=== PATIENT | female | born 1985 | race Caucasian/White ===

== ENCOUNTER 2019-08-25 10:26 | Day surgery (SDC) | payer BC ==
[2019-08-25] MEDS ORDERED: Iopamidol 200-M 10 ML vial ITHECAL ONE (10:47)
[2019-08-25] MEDS ORDERED: Lidocaine 2% 5 ML SDV INJECT ONE (10:47)
[2019-08-25] MEDS ORDERED: Betamethasone Acetate/Betamethasone Sod Phosphate 30 MG/5 ML MDV EPIDUR ONE (10:47)
[2019-08-25] MEDS ORDERED: Ropivacaine 0.5% 5 MG/ML 30 ML SDV INJECT ONE (10:47)
--- NOTE | 2019-08-25 22:14 | OR ---
SURGEON: Karen North D.O. DATE OF PROCEDURE: 08/25/2019 PRIMARY SURGEON: Karen North D.O. TYRE FINISHER AND EXAMINER: OR staff present: 1. Letty Trujillo RN. 2. Brii Medina RN. 3. Charline Fregoso RT. WOUND CLASS: I. PREOPERATIVE DIAGNOSES: 1. Lumbar degenerative disk disease. 2. Lumbar spondylosis. 3. Lumbar L5-S1 radiculopathy. POSTOPERATIVE DIAGNOSES: 1. Lumbar degenerative disk disease. 2. Lumbar spondylosis. 3. Lumbar L5-S1 radiculopathy. PROCEDURE PERFORMED: 1. Right transforaminal epidural steroid injection at S1. 2. Fluoroscopic guidance for needle placement. 3. Local with oral Valium for sedation. SCREENING QUESTIONS: The patient answered "no" to all of the following questions: 1. Are you allergic to iodine, Betadine or latex? 2. Do you have a bleeding disorder? 3. Do you have any joint replacements, heart valve replacements, or a pacemaker? 4. Are you allergic to anti-inflammatories or blood thinners? 5. Do you have any current local or systemic infections? MEDICAL NECESSITY: This is a patient with a history of chronic low back pain and lower extremity radicular pain in the above dermatomal pattern that comes in for the above diagnostic and therapeutic procedure. Pertinent positives and negatives for this suspected disease process along with the diagnostic findings and testing are in the patient's history and physical exam. The most salient feature includes radicular pain in the above dermatomal pattern. The patient had failed attempts at conservative therapy including physical therapy, nonsteroidal anti- inflammatory drugs, and other medications. No contraindications to perform this procedure including medical, no bleeding disorders or infections, no psychological, no antisocial personality disorder or active addiction disorder. There are no work-related issues, and, in general, the patient does not have any history of multiple prior interventions, surgeries or nerve blocks which have failed to return the patient to function. The patient's other symptoms to be treated include numbness, paresthesia, dysesthesia or hypoesthesia referred into the left lower extremity or any weakness in the involved myotome. This procedure is being performed in accordance with national guidelines as written by the [employer] (DANIELLE). DESCRIPTION OF PROCEDURE: The patient had the procedure thoroughly explained including risks, benefits and alternatives. Consent was signed in my clinic indicating understanding and willingness to proceed. The patient presented to [facility] [place] where the patient was escorted to the dressing room to disrobe and change into a hospital gown. Preoperative vital signs were taken and stable. The patient reported that Valium was taken prior to the procedure. The patient was brought to the procedure room and placed in the prone position on the table. A pillow was placed under the abdomen in order to flatten the lumbar lordosis. The back was prepped with ChloraPrep and sterilely draped. All personnel in the operating room were dressed in appropriate attire including surgical scrubs, head and shoe covers. This was to ensure sterility while in the treatment room. During the time fluoroscopy was in use, all personnel in the operating room wore lead lea with thyroid collars. Sterile technique was used during the procedure. The fluoroscope was placed for the S1 transforaminal epidural steroid injection. There was no sign of infection at the skin site for needle insertion. The skin was anesthetized with 2% lidocaine with a 27 gauge 1-1/2 inch needle. Then a 22 gauge 3-1/2 inch spinal needle, advanced to the S1. Under direct fluoroscopic guidance needle position was verified in three views; AP, oblique and lateral, with 0.2 cubic centimeters increments of Isovue-200 dye. No intravascular flow pattern was observed under live fluoroscopy. Then 12 milligrams of Celestone was slowly injected after negative aspiration of heme, cerebrospinal fluid and no paresthesias were noted. The needle was cleared prior to removal from the skin. No adverse reactions were noted. The patient was brought to the recovery room awake and in good condition by my staff. The patient was monitored and discharge instructions were given after a brief stay in the recovery area. Both oral and written discharge and follow up instructions were given. The patient will follow up in the clinic in 3-4 weeks post procedure to evaluate the efficacy. The patient verbalized understanding including understanding of those signs and symptoms that would require emergency care and knows how to contact the office if there are any problems or questions in the meantime. PREOPERATIVE PAIN: 3 to 7 out of 10. POSTOPERATIVE PAIN: /. FOLLOWUP: In the Pain Clinic in 3 weeks. HOGTRACIEHR / DENISEL /[id number]
== END 2019-08-25 13:30 | disposition home or self-care (01) ==
LOC: MW.SDS 10:26
PROVIDERS: ATTEND Anesthesiology
DX: G89.4 Chronic pain syndrome (principal); M51.17 Intervertebral disc disorders with radiculopathy, lumbosacral region; M47.27 Other spondylosis with radiculopathy, lumbosacral region; M51.16 Intervertebral disc disorders with radiculopathy, lumbar region; M79.18 Myalgia, other site
CPT/HCPCS: 64483; 81025; J0702

== ENCOUNTER 2020-04-17 16:27 | Emergency (ER) | payer BC ==
[2020-04-17] MEDS ORDERED: Tetracaine HCl/PF 0.5% 4 ML Bottle ONE (16:39)
[2020-04-17] MEDS ORDERED: Tetracaine HCl/PF 0.5% 4 ML Bottle EYEBOTH ONE (16:51)
[2020-04-17] MEDS ORDERED: Ibuprofen 800 MG Tab PO ONE (16:51)
[2020-04-17] MEDS ORDERED: Erythromycin Base 0.5% Ophth Oint 1 GM Tube EYERT ONE (16:54)
[2020-04-17] MEDS ORDERED: Acetaminophen/oxyCODONE 325-5 MG Tab PO ONE (17:10)
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
[2020-04-17] MEDS ORDERED: Acetaminophen/oxyCODONE 325-5 MG Tab ONE (17:11)
[2020-04-17] MEDS ORDERED: Atropine 1% Ophth Soln 5 ML BOTTLE EYERT STA (17:40)
[2020-04-17] MEDS ORDERED: Morphine 4 MG/ML Syringe IVPUSH ONE (19:00)
[2020-04-17] MEDS ORDERED: Ondansetron 4 MG/2 ML SDV IVPUSH ONE (19:01)
== END 2020-04-17 20:00 | disposition home or self-care (01) ==
LOC: MW.ED 16:27
DX: T26.11XA Burn of cornea and conjunctival sac, right eye, initial encounter (principal); T26.12XA Burn of cornea and conjunctival sac, left eye, initial encounter; T20.16XA Burn of first degree of forehead and cheek, initial encounter; Z88.1 Allergy status to other antibiotic agents; Z79.899 Other long term (current) drug therapy; X10.0XXA Contact with hot drinks, initial encounter
CPT/HCPCS: 96374; 96375; 99283; A9270; J2270; J2405

== ENCOUNTER 2020-05-10 11:23 | Day surgery (SDC) | payer BC ==
[2020-05-10] MEDS ORDERED: Lidocaine 2% 5 ML SDV INJECT ONE (13:30)
[2020-05-10] MEDS ORDERED: Ropivacaine 0.5% 5 MG/ML 30 ML SDV INJECT ONE (13:30)
[2020-05-10] MEDS ORDERED: Iopamidol 200-M 10 ML vial ITHECAL ONE (13:30)
[2020-05-10] MEDS ORDERED: Betamethasone Acetate/Betamethasone Sod Phosphate 30 MG/5 ML MDV EPIDUR ONE (13:30)
--- NOTE | 2020-05-11 17:36 | OR ---
SURGEON: Karen North D.O. DATE OF PROCEDURE: 05/10/2020 PRIMARY SURGEON: Karen North DO ASSISTANTS: OR staff present: 1. Letty Turjillo RN. 2. Ricarda Portillo RN. 3. Letty Titus, RT. PREOPERATIVE DIAGNOSES: 1. L5-S1 degenerative disk disease. 2. L5-S1 radiculopathy. 3. Chronic low back pain. 4. Lumbar spondylosis. 5. Lumbar scoliosis. POSTOPERATIVE DIAGNOSES: 1. L5-S1 degenerative disk disease. 2. L5-S1 radiculopathy. 3. Chronic low back pain. 4. Lumbar spondylosis. 5. Lumbar scoliosis. PROCEDURES PERFORMED: 1. Caudal epidural steroid injection. 2. Fluoroscopic guidance for needle placement. 3. Local with oral Valium for sedation. SCREENING QUESTIONS: The patient answered "no" to all of the following questions: 1. Are you allergic to latex? 2. Do you have a bleeding disorder? 3. Do you have any current local or systemic infections? 4. Are you taking any anti-inflammatories or blood thinners? 5. Do you have any joint replacements, heart valve replacements, or a pacemaker? DESCRIPTION OF PROCEDURE: The patient had the procedure thoroughly explained including all possible risks, benefits and alternatives. Consent was signed in my clinic indicating understanding and willingness to proceed. The patient presented to [facility] [place] and was escorted to the dressing room to disrobe and change into a hospital gown. Preoperative vital signs were taken and stable. The patient reported that Valium was taken prior to the procedure. The patient was brought back to the procedure room and placed in the prone position on the procedure room table. A pillow was placed under the hips in order to flatten the lumbar lordosis. The back was prepped with ChloraPrep and sterilely draped. All personnel in the operating room were dressed in appropriate attire including surgical scrubs, head and shoe covers. This was to ensure sterility while in the treatment room. During the time fluoroscopy was in use, all personnel in the operating room wore lead lea with thyroid collars. Sterile technique was used throughout the procedure. The patient was awake and conversant throughout the procedure. There was no evidence of infection at the site of needle insertion. Skeletal landmarks were identified under fluoroscopy for the lumbar epidural. Skin was anesthetized with 2% lidocaine with a sterile 27-gauge 1.5 inch needle. Then a 20-gauge Tuohy epidural needle was placed in the epidural space with loss of resistance technique under fluoroscopic guidance. No heme, cerebrospinal fluid, or paresthesias were noted. Isovue-200 contrast dye was injected in 0.2 cubic centimeter increments and seen to outline the epidural space in both AP and lateral views. There was no intravascular flow pattern observed under live fluoroscopy. Then 12 milligrams of Celestone was slowly injected after negative aspiration. The patient tolerated the procedure well. Vital signs were stable during and after the procedure. The staff escorted the patient to the recovery area and the patient was released in stable condition after a brief stay in the recovery room monitored by the nurse. The patient was given both oral and written discharge and follow up instructions with recommendation to follow up given for 2-3 weeks. The patient voiced understanding including understanding of those signs and symptoms that would require emergency care. The patient knows how to contact the office if there are any additional problems or questions in the meantime. PREOPERATIVE PAIN: 6+/10. POSTOPERATIVE PAIN: 3/10. FOLLOWUP: In the Pain Clinic in 3 weeks. SARA / SILVERIO /[id number]
== END 2020-05-10 13:39 ==
LOC: MW.SDS 11:23
PROVIDERS: ATTEND Anesthesiology
DX: G89.4 Chronic pain syndrome (principal); M51.17 Intervertebral disc disorders with radiculopathy, lumbosacral region; M47.26 Other spondylosis with radiculopathy, lumbar region; M41.9 Scoliosis, unspecified; M51.16 Intervertebral disc disorders with radiculopathy, lumbar region; M79.18 Myalgia, other site; G57.01 Lesion of sciatic nerve, right lower limb; M06.9 Rheumatoid arthritis, unspecified; Z88.8 Allergy status to other drugs, medicaments and biological substances; Z79.899 Other long term (current) drug therapy
CPT/HCPCS: 62323; J0702; J2001; J2795; Q9966

== ENCOUNTER 2020-06-23 17:57 | Emergency (ER) | payer BC ==
[2020-06-23] MEDS ORDERED: Sodium Chloride 0.9% 10 ML Syringe FLUSH PRN (18:19)
[2020-06-23] MEDS ORDERED: Sodium Chloride 0.9% 2.5 ML Syringe FLUSH PRN (18:19)
[2020-06-23] MEDS ORDERED: Morphine 4 MG/ML Syringe IVPUSH ONE (18:19)
[2020-06-23] MEDS ORDERED: Lactated Ringers 1,000 ML IV ONE (18:19)
[2020-06-23 18:46] LABS: POTASSIUM,K 3.9 mmol/L (3.5-5.1)
--- NOTE | 2020-06-23 19:00 | CT ---
INDICATION: Right flank and right lower quadrant pain for 8 history of kidney stones. TECHNIQUE: Volumetric helical scanning of the abdomen and pelvis was performed without contrast material. Coronal and sagittal reconstructions were obtained. COMPARISON: None. FINDINGS: No ureteral stone or obstruction is evident. Stones in the right renal collecting system measuring up to 8 mm, 7 mm, 5 mm, 5 mm and 2 mm are noted as well the 7 mm stone in the left renal collecting system. The renal parenchyma is unremarkable. The bladder is grossly negative. The uterus and ovaries are grossly negative. No free fluid is evident. There appears to be mild fatty change in the liver. The liver is otherwise unremarkable. No bile duct dilation is evident. The spleen is within normal limits. The adrenal glands are unremarkable. The pancreas is within normal limits. No lymphadenopathy is evident. There is considerable stool in the colon. A few colonic diverticula are noted. The stomach is distended with food. Images of the lung bases demonstrate with scattered small ground-glass infiltrates. The heart is normal in size. IMPRESSION: 1. Negative for ureteral stone and obstruction. Renal collecting system stones bilaterally, as above. 2. Scattered small nonspecific ground-glass infiltrates in both lung bases. 3. Constipation and a few colonic diverticula but no evidence of diverticulitis. 4. Stomach distended with food. 5. Mild fatty change in the liver. Please note that all CT scans at this facility use dose modulation, iterative reconstruction, and/or weight-based dosing when appropriate to reduce radiation dose to as low as reasonably achievable. Dictated by Sterling Kim MD @ Jun 23 2020 6:50PM Signed by Dr. Sterling Kim @ Jun 23 2020 6:59PM
[2020-06-23] MEDS ORDERED: HYDROmorphone 2 MG/ML Syringe IVPUSH ONE (19:07)
--- NOTE | 2020-06-23 19:17 | EDM.PDOC ---
<Craig Linares - Last Filed: 06/23/20 19:14> ED HPI GENERAL MEDICAL PROBLEM - General Chief Complaint: Abdominal Pain Stated Complaint: ABDOMINAL PAIN Time Seen by Provider: 06/23/20 18:00 - History of Present Illness INITIAL COMMENTS - FREE TEXT/NARRATIVE: CHIEF COMPLAINT(S): Abdominal pain HISTORY OF PRESENT ILLNESS: This is a 35-year-old woman with a past medical history of fibromyalgia and lupus with recent diagnosis of coronavirus on May 30, 2020 who comes to the emergency department with a chief complaint of abdominal pain. The patient states that she is having off-and-on abdominal pain for 1 year however it is worsened over the last month since she has had Covid. She states that she can tell with muscle pain from lying down so much given the Covid. She states that she started to experience right back pain radiating to her groin and the only relief at that time was hot compresses and baths. She states that she tried that again today and it did not help. She states that the pain is sharp and rated 10 out of 10 at its worst. She states that movement worsens this. She denies any dysuria, hematuria, vaginal bleeding or vaginal discharge. She states that she has some chills but denies any fevers. She denies any cough, shortness of breath but states that she is part of a study and is still shedding the virus. She denies any other symptoms. REVIEW OF SYSTEMS: Constitutional: Denies fever, chills. Eyes: Denies eye pain Ears, Nose, Mouth, & Throat: Denies earache Cardiovascular: Denies chest pain Respiratory: Denies shortness of breath Gastrointestinal: Positive for right sided abdominal pain. Denies nausea, vomiting, diarrhea, melena, hematochezia, hematemesis Genitourinary: Denies hematuria dysuria, vaginal bleeding, vaginal discharge Skin:Denies a rash Neurological: Denies blurred vision Psychiatric: Denies depression PAST MEDICAL HISTORY: As per history of present illness and as reviewed below otherwise noncontributory. SURGICAL HISTORY: As per history of present illness and as reviewed below otherwise noncontributory. LMP: June 03, 2020 SOCIAL HISTORY: As per history of present illness and as reviewed below otherwise noncontributory. FAMILY HISTORY: As per history of present illness and as reviewed below otherwise noncontributory. EXAMINATION OF ORGAN SYSTEMS/BODY AREAS: Constitutional: Blood pressure is 112/72, heart rate 131, respiratory rate 18 with an oxygen saturation 98% on room air. Temperature 36.2 General: 35-year-old woman who does not appear to be in any acute distress Psychiatric: Appropriate mood and affect. Eyes: No scleral icterus or conjunctival erythema ENMT: Moist mucous membranes. No pharyngeal erythema Cardiovascular: Tachycardic but regular no gallops, murmurs, or rubs. Bilateral upper extremity pulses symmetric and intact. No peripheral edema. No JVD. Respiratory: Lungs clear to auscultation bilaterally. No wheezes, rales, or rhonchi. Gastrointestinal: Soft, nondistended, tenderness to palpation in the right pelvic/right lower quadrant area without any rebound or guarding. Normoactive bowel sounds Genitourinary: No suprapubic tenderness mild right CVA tenderness Musculoskeletal: Normal range of motion. Skin: No lesions or abrasions. Neurological: Alert, GCS 15 MEDICAL DECISION MAKING AND COURSE IN THE ED WITH INTERPRETATION/REVIEW OF DIAGNOSTIC STUDIES: This is a 35-year-old woman with a past medical history of nephrolithiasis, lupus, fibromyalgia and recent diagnosis of Covid who comes to the emergency department with right flank pain with radiation to her groin who is tachycardic. At this time I am concerned about the hospital and nephrolithiasis given her history of nephrolithiasis. Will obtain CBC, CMP, urinalysis, hCG. We will provide the patient with 1 L of lactated Ringer's bolus. We will provide the patient with 4 mg of IV morphine. Will obtain a CT abdomen pelvis with IV contrast and reevaluate. Laboratory: CBC reveals a leukocytosis of 19.79 with neutrophilic predominance. CMP reveals a mild elevation in her BUN at 22 and a creatinine of 1.11 otherwise unremarkable. hCG is negative Urinalysis was a clean catch and was negative for leukocyte esterase, negative for nitrites, and positive for blood. Interpretation: Hematuria The radiological images were viewed by myself along with reading the report from the radiologist. CT abdomen pelvis without contrast reveals no evidence of urethral stone or obstruction. There is renal collecting stone bilaterally. There is scattered nonspecific groundglass infiltrates in both lungs. There is constipation and few colonic diverticula but no evidence of diverticulitis. Stomach distended with food. Mild fatty changes of liver. On reevaluation, the patient's heart rate had improved however she stated she was still in pain. We will treat her symptomatically with 1 mg of IV Dilaudid encourage p.o. intake. At this time I did discuss the results with the patient. She states that she does not believe she has constipation is concerned as to why she is still having pain. I discussed with her at this time that it is uncertain as to what is causing her pain however is could be musculoskeletal. I discussed that there is no evidence of renal obstructing stones or evidence of urinary tract infection or any other abnormality. [facility] reevaluation. DISPOSITION: Patient was signed out to [facility] team physician pending reevaluation. If the patient's pain improved with the patient is stable for discharge and follow-up with urology and primary care physician. CONDITION: Fair PROCEDURES: None FINAL IMPRESSION(S)/DIAGNOSES: 1. Acute abdominal pain, unknown etiology Craig Linares M.D. Right Flank Pain Score (Numeric/FACES): 8 - Related Data Allergies Allergy/AdvReac Type Severity Reaction Status Date / Time cefaclor [From Ceclor] Allergy Rash Verified 06/23/20 18:19 diclofenac Allergy Itching Verified 06/23/20 18:19 Home Meds: Home Meds Cholesterol Medication 04/17/20 [History] Levothyroxine 0 mg PO DAILY 04/17/20 [History] Med For Fibromyalgia 04/17/20 [History] Hydrocodone/Acetaminophen [[place] 10-325 Tablet] 1 each PO QPM #4 tablet 06/23/20 [Rx] Past Medical History HEENT History: Reports: None Cardiovascular History: Reports: High Cholesterol Respiratory History: Reports: None Gastrointestinal History: Reports: None Other Genitourinary History: history of kidney stones PAPER CUTTER History: Reports: Musculoskeletal History: Reports: Fibromyalgia Neurological History: Reports: None Endocrine/Metabolic History: Reports: Hypothyroidism Dermatologic History: Reports: None - Past Surgical History HEENT Surgical History: Reports: Naso-Sinus Surgery, Tonsillectomy Cardiovascular Surgical History: Reports: None Endocrine Surgical History: Reports: None Musculoskeletal Surgical History: Reports: None Social & Family History - Family History Family Medical History: No Pertinent Family History - Tobacco Use Tobacco Use Status *Q: Never Tobacco User - Caffeine Use Caffeine Use: Reports: None - Recreational Drug Use Recreational Drug Use: No ED ROS GENERAL - Review of Systems Review Of Systems: See Below ED EXAM, GENERAL - Physical Exam Exam: See Below Departure - Departure Disposition: Home, Self-Care 01 Clinical Impression: Abdominal pain - Discharge Information Prescriptions: Hydrocodone/Acetaminophen [[place] 10-325 Tablet] 1 each PO QPM #4 tablet Instructions: Abdominal Pain, Adult, [id number] Referrals: Phil Gastelum MD [Primary Care Provider] - Forms: ED Department Discharge Additional Instructions: [facility] - Primary Care [address] [place] [id number] [id number] The following information is given to patients seen in the emergency department who are being discharged to home. This information is to outline your options for follow-up care. We provide all patients seen in our emergency department with a follow-up referral. The need for follow-up, as well as the timing and circumstances, are variable depending upon the specifics of your emergency department visit. If you don't have a primary care physician on staff, we will provide you with a referral. We always advise you to contact your personal physician following an emergency department visit to inform them of the circumstance of the visit and for follow-up with them and/or the need for any referrals to a consulting specialist. The emergency department will also refer you to a specialist when appropriate. This referral assures that you have the opportunity for follow-up care with a specialist. All of these measure are taken in an effort to provide you with optimal care, which includes your follow-up. Under all circumstances we always encourage you to contact your private physician who remains a resource for coordinating your care. When calling for follow-up care, please make the office aware that this follow-up is from your recent emergency room visit. If for any reason you are refused follow-up, please contact the [facility] Emergency Department at and asked to speak to the emergency department charge nurse. Sepsis Event Note (ED) - Evaluation Sepsis Screening Result: No Definite Risk <Campos,Gelacio - Last Filed: 06/23/20 19:51> Course - Vital Signs Text/Narrative:: Heart rate came to 88 after pain under control. Patient in satisfactory condition Last Recorded V/S: Last Vital Signs Temp 36.2 C 06/23/20 18:08 Pulse 131 H 06/23/20 18:08 Resp 18 06/23/20 18:08 BP 112/72 06/23/20 18:08 Pulse Ox 98 06/23/20 18:08 - Orders/Labs/Meds Orders: Active Orders 24 hr Category Date Time Status Sodium Chloride 0.9% [Saline Flush] Med 06/23/20 18:19 Active 10 ml FLUSH ASDIRECTED PRN Sodium Chloride 0.9% [Saline Flush] Med 06/23/20 18:19 Active 2.5 ml FLUSH ASDIRECTED PRN Saline Lock Insert [OM.PC] Stat Oth 06/23/20 18:20 Ordered Medication Orders Sodium Chloride (Saline Flush) 10 ml FLUSH ASDIRECTED PRN PRN Reason: Keep Vein Open Last Admin: 06/23/20 19:25 Dose: 10 ml Documented by: ISA Sodium Chloride (Saline Flush) 2.5 ml FLUSH ASDIRECTED PRN PRN Reason: Keep Vein Open Last Admin: 06/23/20 19:24 Dose: 2.5 ml Documented by: ISA Labs: Laboratory Tests 06/23/20 06/23/20 06/23/20 Range/Units 18:11 18:15 18:15 WBC 19.79 H (4.0-11.0) K/uL RBC 5.10 (4.30-5.90) M/uL Hgb 15.1 (12.0-16.0) g/dL Hct 46.7 H (36.0-46.0) % MCV 91.6 (80.0-98.0) fL MCH 29.6 (27.0-32.0) pg MCHC 32.3 (31.0-37.0) g/dL RDW Std Deviation 43.3 (28.0-62.0) fl RDW Coeff of Adrianne 13 (11.0-15.0) % Plt Count 357 (150-400) K/uL MPV 10.60 (7.40-12.00) fL Neut % (Auto) 83.6 H (48.0-80.0) % Lymph % (Auto) 7.9 L (16.0-40.0) % Guthrie % (Auto) 8.4 (0.0-15.0) % Eos % (Auto) 0.0 (0.0-7.0) % Baso % (Auto) 0.1 (0.0-1.5) % Neut # (Auto) 16.5 H (1.4-5.7) K/uL Lymph # (Auto) 1.6 (0.6-2.4) K/uL Guthrie # (Auto) 1.7 H (0.0-0.8) K/uL Eos # (Auto) 0.0 (0.0-0.7) K/uL Baso # (Auto) 0.0 (0.0-0.1) K/uL Nucleated RBC % 0.0 /100WBC Nucleated RBCs # 0 K/uL Sodium (136-145) mmol/L Potassium (3.5-5.1) mmol/L Chloride (98-107) mmol/L Carbon Dioxide (21.0-32.0) mmol/L BUN (7.0-18.0) mg/dL Creatinine (0.6-1.0) mg/dL Est Cr Clr Drug Dosing mL/min Estimated GFR (MDRD) ml/min Glucose (74-106) mg/dL Calcium (8.5-10.1) mg/dL Magnesium (1.8-2.4) mg/dL Total Bilirubin (0.2-1.0) mg/dL AST (15-37) IU/L ALT (14-63) IU/L Alkaline Phosphatase (46-116) U/L Total Protein (6.4-8.2) g/dL Albumin (3.4-5.0) g/dL Globulin (2.6-4.0) g/dL Albumin/Globulin Ratio (0.9-1.6) Urine Color YELLOW Urine Appearance HAZY Urine pH 6.0 (5.0-8.0) Ur Specific Drewsey 1.025 (1.001-1.035) Urine Protein NEGATIVE (NEGATIVE) mg/dL Urine Glucose (UA) NEGATIVE (NEGATIVE) mg/dL Urine Ketones NEGATIVE (NEGATIVE) mg/dL Urine Occult Blood SMALL H (NEGATIVE) Urine Nitrite NEGATIVE (NEGATIVE) Urine Bilirubin NEGATIVE (NEGATIVE) Urine Urobilinogen 0.2 (<2.0) EU/dL Ur Leukocyte Esterase NEGATIVE (NEGATIVE) Urine RBC 15-20 (0-2/HPF) Urine WBC 0-3 (0-5/HPF) Ur Epithelial Cells MODERATE (NONE-FEW) Urine Bacteria FEW (NEGATIVE) Urine Mucus LIGHT (NONE-MOD) Urine HCG, Qual NEGATIVE (NEGATIVE) 06/23/20 Range/Units 18:15 WBC (4.0-11.0) K/uL RBC (4.30-5.90) M/uL Hgb (12.0-16.0) g/dL Hct (36.0-46.0) % MCV (80.0-98.0) fL MCH (27.0-32.0) pg MCHC (31.0-37.0) g/dL RDW Std Deviation (28.0-62.0) fl RDW Coeff of Adrianne (11.0-15.0) % Plt Count (150-400) K/uL MPV (7.40-12.00) fL Neut % (Auto) (48.0-80.0) % Lymph % (Auto) (16.0-40.0) % Guthrie % (Auto) (0.0-15.0) % Eos % (Auto) (0.0-7.0) % Baso % (Auto) (0.0-1.5) % Neut # (Auto) (1.4-5.7) K/uL Lymph # (Auto) (0.6-2.4) K/uL Guthrie # (Auto) (0.0-0.8) K/uL Eos # (Auto) (0.0-0.7) K/uL Baso # (Auto) (0.0-0.1) K/uL Nucleated RBC % /100WBC Nucleated RBCs # K/uL Sodium 137 (136-145) mmol/L Potassium 3.9 (3.5-5.1) mmol/L Chloride 101 (98-107) mmol/L Carbon Dioxide 26.0 (21.0-32.0) mmol/L BUN 22 H (7.0-18.0) mg/dL Creatinine 1.1 H (0.6-1.0) mg/dL Est Cr Clr Drug Dosing 59.05 mL/min Estimated GFR (MDRD) 56.5 ml/min Glucose 109 H (74-106) mg/dL Calcium 9.0 (8.5-10.1) mg/dL Magnesium 2.2 (1.8-2.4) mg/dL Total Bilirubin 0.4 (0.2-1.0) mg/dL AST 11 L (15-37) IU/L ALT 41 (14-63) IU/L Alkaline Phosphatase 78 (46-116) U/L Total Protein 7.2 (6.4-8.2) g/dL Albumin 3.4 (3.4-5.0) g/dL Globulin 3.8 (2.6-4.0) g/dL Albumin/Globulin Ratio 0.9 (0.9-1.6) Urine Color Urine Appearance Urine pH (5.0-8.0) Ur Specific Drewsey (1.001-1.035) Urine Protein (NEGATIVE) mg/dL Urine Glucose (UA) (NEGATIVE) mg/dL Urine Ketones (NEGATIVE) mg/dL Urine Occult Blood (NEGATIVE) Urine Nitrite (NEGATIVE) Urine Bilirubin (NEGATIVE) Urine Urobilinogen (<2.0) EU/dL Ur Leukocyte Esterase (NEGATIVE) Urine RBC (0-2/HPF) Urine WBC (0-5/HPF) Ur Epithelial Cells (NONE-FEW) Urine Bacteria (NEGATIVE) Urine Mucus (NONE-MOD) Urine HCG, Qual (NEGATIVE) Meds: Medications Generic Name Dose Route Start Last Admin Trade Name Freq PRN Reason Stop Dose Admin Sodium Chloride 10 ml 06/23/20 18:19 06/23/20 19:25 Saline Flush FLUSH 10 ml ASDIRECTED PRN Administration Keep Vein Open Sodium Chloride 2.5 ml 06/23/20 18:19 06/23/20 19:24 Saline Flush FLUSH 2.5 ml ASDIRECTED PRN Administration Keep Vein Open Discontinued Medications Generic Name Dose Route Start Last Admin Trade Name Freq PRN Reason Stop Dose Admin Hydromorphone HCl 1 mg 06/23/20 19:07 06/23/20 19:23 Dilaudid IVPUSH 06/23/20 19:08 1 mg ONETIME ONE Administration Lactated Ringer's 1,000 mls @ 999 mls/hr 06/23/20 18:19 06/23/20 18:47 Ringers, Lactated IV 06/23/20 19:19 999 mls/hr .BOLUS ONE Administration Morphine Sulfate 4 mg 06/23/20 18:19 06/23/20 18:48 Morphine IVPUSH 06/23/20 18:20 4 mg ONETIME ONE Administration Departure - Departure Time of Disposition: 19:50 Condition: Good Sepsis Event Note (ED) - Focused Exam Vital Signs: Vital Signs Temp Pulse Resp BP Pulse Ox 06/23/20 18:08 36.2 C 131 H 18 112/72 98
== END 2020-06-23 20:19 | disposition home or self-care (01) ==
LOC: MW.ED 17:57
DX: R10.31 Right lower quadrant pain (principal); E03.9 Hypothyroidism, unspecified; Z79.899 Other long term (current) drug therapy; Z88.1 Allergy status to other antibiotic agents; Z88.6 Allergy status to analgesic agent
CPT/HCPCS: 36415; 74176; 80053; 81001; 81025; 83735; 85025; 96374; 96375; 99284; J1170; J2270; J7120; 99283

== ENCOUNTER 2022-03-17 12:28 | Emergency (ER) | payer BC ==
[2022-03-17] MEDS ORDERED: Orphenadrine 60 MG/2 ML Inj IM ONE (14:09)
[2022-03-17] MEDS ORDERED: Ketorolac 60 MG/2 ML SDV IM ONE (14:09)
== END 2022-03-17 14:50 | disposition home or self-care (01) ==
LOC: MW.ED 12:28
DX: N30.00 Acute cystitis without hematuria (principal); M54.42 Lumbago with sciatica, left side; M54.41 Lumbago with sciatica, right side; E03.9 Hypothyroidism, unspecified; E78.00 Pure hypercholesterolemia, unspecified; Z79.899 Other long term (current) drug therapy; Z88.6 Allergy status to analgesic agent; Z88.1 Allergy status to other antibiotic agents
CPT/HCPCS: 81001; 81025; 96372; 99283; J1885; J2360